=== PATIENT | female | born 1980 ===

== ENCOUNTER 2021-09-21 01:54 | Emergency (ER) | payer MEDICAID ==
[~2021-09-21] VITALS: Ht 167.6 cm; Wt 66.0 kg
[2021-09-21 02:02] VITALS: BP 118/85
[2021-09-21] MEDS ORDERED: BACITRACIN ZINC OINT UDPKT TOP ONE (04:45)
[2021-09-21] MEDS ORDERED: ACETAMINOPHEN 325MG TABLET PO ONE (04:45)
[2021-09-21] MEDS ORDERED: TOPUD MT (05:38)
== END 2021-09-21 07:07 | disposition home or self-care (01) ==
LOC: ER 01:54
DX: S80.212A Abrasion, left knee, initial encounter (principal); R51.9 Headache, unspecified; M25.552 Pain in left hip; X58.XXXA Exposure to other specified factors, initial encounter; Y93.89 Activity, other specified; Y92.89 Other specified places as the place of occurrence of the external cause; Y99.8 Other external cause status
CPT/HCPCS: 73502; 73562; 99284